=== PATIENT | female | born 1995 | race African-American/Black ===

== ENCOUNTER 2019-04-15 19:57 | Emergency (ER) | payer MEDICAID ==
[~2019-04-15] VITALS: Ht 170.2 cm; Wt 59.0 kg
[~2019-04-15 19:57] MED LIST: PREN-96 PO
[2019-04-15 20:32] LABS: Urine Bacteria NONE SEEN /hpf (None Seen); Urine Blood Negative /uL (Negative); Urine Mucus FEW (None Seen); Urine Specific Gravity 1.029 (1.001-1.035); Urine WBC <1 /hpf (0 - 5)
[2019-04-15 22:10] VITALS: BP 109/64
[2019-04-15] MEDS ORDERED: IBUPROFEN 800 MG TAB PO ONE (22:45)
[2019-04-15] MEDS ORDERED: METHOCARBAMOL 500 MG TAB PO ONE (22:45)
== END 2019-04-15 22:59 | disposition home or self-care (01) ==
LOC: ER 20:00
DX: M62.830 Muscle spasm of back (principal); M54.2 Cervicalgia; M54.5 Low back pain; R51 Headache; F17.210 Nicotine dependence, cigarettes, uncomplicated
CPT/HCPCS: 72040; 81001; 81025

== ENCOUNTER 2020-12-10 15:52 | Emergency (ER) | payer MEDICAID ==
[~2020-12-10] VITALS: Ht 167.6 cm; Wt 68.0 kg
[2020-12-10 15:53] VITALS: BP 122/78
== END 2020-12-10 17:20 | disposition home or self-care (01) ==
LOC: ER 15:52
DX: K60.2 Anal fissure, unspecified (principal); K59.00 Constipation, unspecified; F17.210 Nicotine dependence, cigarettes, uncomplicated

== ENCOUNTER 2021-01-07 08:37 | Emergency (ER) | payer MEDICAID ==
[~2021-01-07] VITALS: Ht 170.2 cm; Wt 61.2 kg
[2021-01-07 08:41] VITALS: BP 138/76
[2021-01-07 10:01] LABS: Urine Bacteria FEW /hpf (None Seen); Urine Blood 2+ /uL (Negative); Urine Specific Gravity 1.007 (1.001-1.035); Urine WBC 1 /hpf (0 - 5)
== END 2021-01-07 11:14 | disposition home or self-care (01) ==
LOC: ER 08:37
DX: S62.652A Nondisplaced fracture of middle phalanx of right middle finger, initial encounter for closed fracture (principal); S63.634A Sprain of interphalangeal joint of right ring finger, initial encounter; F17.210 Nicotine dependence, cigarettes, uncomplicated; F12.10 Cannabis abuse, uncomplicated; N93.9 Abnormal uterine and vaginal bleeding, unspecified; Z32.01 Encounter for pregnancy test, result positive; W01.0XXA Fall on same level from slipping, tripping and stumbling without subsequent striking against object, initial encounter; Y93.89 Activity, other specified; Y99.8 Other external cause status; Y92.89 Other specified places as the place of occurrence of the external cause
CPT/HCPCS: 29130; 36415; 73140; 81001; 81025; 84702

== ENCOUNTER 2021-01-12 14:27 | Emergency (ER) | payer MEDICAID ==
[~2021-01-12] VITALS: Ht 170.2 cm; Wt 61.2 kg
[2021-01-12 15:03] VITALS: BP 120/63
[2021-01-12 15:34] LABS: Urine Bacteria NONE SEEN /hpf (None Seen); Urine Blood Negative /uL (Negative); Urine Mucus FEW (None Seen); Urine Specific Gravity 1.023 (1.001-1.035); Urine WBC 1 /hpf (0 - 5)
== END 2021-01-12 18:11 | disposition home or self-care (01) ==
LOC: ER 14:27
DX: O03.9 Complete or unspecified spontaneous abortion without complication (principal); F17.210 Nicotine dependence, cigarettes, uncomplicated; F12.10 Cannabis abuse, uncomplicated; Z3A.01 Less than 8 weeks gestation of pregnancy
CPT/HCPCS: 36415; 76801; 76817; 81001; 84702